=== PATIENT | male | born 1935 | race Caucasian/White ===

== ENCOUNTER 2018-12-03 21:02 | Emergency (ER) | payer OTHER ==
[2018-12-03] MEDS ORDERED: HYDROcodone/Acetaminophen 10/325 mg Tablet ONE (22:38)
[2018-12-03] MEDS ORDERED: Lidocaine 1% (PF) 30 ML VIAL ONE (22:55)
== END 2018-12-03 23:20 | disposition home or self-care (01) ==
LOC: ERS 21:02
DX: L02.11 Cutaneous abscess of neck (principal); E10.9 Type 1 diabetes mellitus without complications; I10 Essential (primary) hypertension; J44.9 Chronic obstructive pulmonary disease, unspecified; Z79.1 Long term (current) use of non-steroidal anti-inflammatories (NSAID); Z79.891 Long term (current) use of opiate analgesic; Z79.82 Long term (current) use of aspirin; Z79.51 Long term (current) use of inhaled steroids
CPT/HCPCS: 10060; 36416; J2001

== ENCOUNTER 2019-07-23 16:12 | Inpatient (IN) | payer OTHER ==
[2019-07-23 16:57] LABS: #Lymphocytes 1.2 thou/uL (1.20-3.40); #Monocytes 0.6 thou/uL (0.11-0.59); #Neutrophils 7.6 thou/uL (1.40-6.50); %Basophils 0.3 % (0.0-1.0); %Eosinophils 0.2 % (0.0-10.0); %Lymphocytes 12.3 % (21.0-51.0); %Monocytes 6.6 % (0.0-10.0); %Neutrophils 80.6 % (42.0-75.0); Hemoglobin 15.4 g/dL (14.0-18.0); Mean Corpuscular HGB CONC 33.2 g/dL (32.0-36.0); Mean Corpuscular Hemoglobin 28.6 pg (27.0-31.0); Mean Corpuscular Volume 86.1 fL (78.0-98.0); Mean Platelet Volume 9.5 fL (7.4-10.4); Platelet Count 211 thou/uL (130-400); RBC Distribution Width 12.2 % (11.5-14.5); White Blood Cell (WBC) Count 9.5 thou/uL (4.8-10.8)
--- NOTE | 2019-07-23 17:11 | RAD ---
RADIOGRAPH CHEST 1 VIEW: DATE: 07/23/2019 TIME: 4:15 PM HISTORY: 83-year-old female with dyspnea COMPARISON: none FINDINGS: Inspiration is shallow. Hazy, increased attenuation at the lateral, peripheral aspects of bilateral l osmar morgan, especially at left lateral mid and lower lung zones. No large consolidation or pneumothorax. Without prior studies, it is uncertain whether these changes are chronic or acute. IMPRESSION: Nonspecific mild, faint pulmonary densities at the peripheries of the bilateral lungs, especially lef t.
[2019-07-23 17:17] LABS: ALT (SGPT) 30 U/L (8-55); AST (SGOT) 48 U/L (5-34); Albumin 3.5 g/dL (3.4-4.8); Alkaline Phosphatase 147 U/L (40-110); Anion Gap 15 mmol/L (10-20); BUN (Urea Nitrogen) 12 mg/dL (8.4-25.7); Bilirubin, Total 0.4 mg/dL (0.2-1.2); Calc. Creatinine Clearance 0 mL/min (70-130); Calcium 8.3 mg/dL (7.8-10.44); Carbon Dioxide 23 mmol/L (23-31); Chloride 97 mmol/L (98-107); Estimated GFR-MDRD 72; Globulin 3.3 g/dL (2.4-3.5); Glucose 420 mg/dL (83-110); Potassium 3.8 mmol/L (3.5-5.1); Protein, Total 6.8 g/dL (5.8-8.1); Sodium 131 mmol/L (136-145)
[2019-07-23] MEDS ORDERED: cefTRIAXone\\ROCEPHIN 2 GM VIAL ONE (18:00)
[2019-07-23] MEDS ORDERED: Azithromycin 500 MG VIAL ONE (18:23)
[2019-07-23] MEDS ORDERED: Acetaminophen 325 MG TAB PO PRN (19:19)
[2019-07-23] MEDS ORDERED: HYDROcodone/Acetaminophen 5/325 mg Tablet PO PRN (19:19)
[2019-07-23] MEDS ORDERED: Ondansetron ODT 4 MG TAB PO PRN (19:19)
[2019-07-23] MEDS ORDERED: Acetaminophen 650 MG Suppository PR PRN (19:19)
[2019-07-23] MEDS ORDERED: Ondansetron PF 4 MG/2 ML Vial IVP PRN (19:19)
[2019-07-23] MEDS ORDERED: HYDROcodone/Acetaminophen 7.5/325 mg Tablet PO PRN (19:19)
--- NOTE | 2019-07-23 19:35 | PDOC.HHP ---
Hospitalist HPI - History of Present Illness sob History of Present Illness: Case of an 83y/o male with pmhx of dmt2, htn and copd who comes to hospital brought in from [facility] due to shortness of breath. patient refers he was on his usual state of health until 3 days ago when he started with increasing sob, cough and yellow/greenish production, patient denies fever chills, chest pain or leg swelling. possible exposure to coronavirus. patient is also complaining of nausea, no vomiting. also refers some 2 episodes of diarrhea yesterday. upon arrival patient found on sepis parameters with increased RR and elevated lactid acid for which hospitlast was consulted for further evaluation and management Hospitalist ROS - Review of Systems All other systems reviewed; all pertinent +/- noted in HPI/Subj Hospitalist History - Past Medical History Cardiac: reports: HTN Pulmonary: reports: COPD Endocrine: reports: Diabetes - Past Surgical History Past Surgical History: reports: no pertinent history Other Surgical History: circumcision - Family History Family History: reports: cardiac disorder - Exam General Appearance: awake alert Eye: PERRL, anicteric sclera ENT: normocephalic atraumatic, no oropharyngeal lesions Neck: supple, symmetric, no JVD, no thyromegaly Heart: RRR, no gallops, murmur present Respiratory: CTAB, no wheezes, no rales, no ronchi Respiratory - other findings: tachypnic Gastrointestinal: soft, non-tender, non-distended Extremities: no cyanosis, no clubbing Skin: normal turgor, no lesions Neurological: cranial nerve grossly intact, normal sensation to touch Musculoskeletal: normal tone, normal strength, no muscle wasting Psychiatric: normal affect, normal behavior, A&O x 3 Hospitalist Results - Labs Result Diagrams: 07/23/19 16:39 07/23/19 16:39 Lab results: WBC 9.5 thou/uL (4.8-10.8) 07/23/19 16:39 Hgb 15.4 g/dL (14.0-18.0) 07/23/19 16:39 Hct 46.5 % (42.0-52.0) 07/23/19 16:39 MCV 86.1 fL (78.0-98.0) 07/23/19 16:39 Plt Count 211 thou/uL (130-400) 07/23/19 16:39 Neutrophils % 80.6 % (42.0-75.0) H 07/23/19 16:39 Sodium 131 mmol/L (136-145) L 07/23/19 16:39 Potassium 3.8 mmol/L (3.5-5.1) 07/23/19 16:39 Chloride 97 mmol/L (98-107) L 07/23/19 16:39 Carbon Dioxide 23 mmol/L (23-31) 07/23/19 16:39 BUN 12 mg/dL (8.4-25.7) 07/23/19 16:39 Creatinine 0.99 mg/dL (0.7-1.3) 07/23/19 16:39 Glucose 420 mg/dL (83-110) H 07/23/19 16:39 Lactic Acid 2.3 mmol/L (0.5-2.2) H 07/23/19 16:39 Calcium 8.3 mg/dL (7.8-10.44) 07/23/19 16:39 Total Bilirubin 0.4 mg/dL (0.2-1.2) 07/23/19 16:39 AST 48 U/L (5-34) H 07/23/19 16:39 ALT 30 U/L (8-55) 07/23/19 16:39 Alkaline Phosphatase 147 U/L (40-110) H 07/23/19 16:39 Troponin I 0.013 ng/mL (< 0.028) 07/23/19 17:29 B-Natriuretic Peptide 39.7 pg/mL (0-100) 07/23/19 16:39 Serum Total Protein 6.8 g/dL (5.8-8.1) 07/23/19 16:39 Albumin 3.5 g/dL (3.4-4.8) 07/23/19 16:39 - Radiology Interpretation Chest x-ray Additional Comment: Inspiration is shallow. Hazy, increased attenuation at the lateral, peripheral aspects of bilateral l osmar morgan, especially at left lateral mid and lower lung zones. No large consolidation or pneumothorax. Without prior studies, it is uncertain whether these changes are chronic or acute. IMPRESSION: Nonspecific mild, faint pulmonary densities at the peripheries of the bilateral lungs, especially lef t. Hospitalist H&P A/P - Problem (1) Pneumonia Code(s): J18.9 - PNEUMONIA, UNSPECIFIED ORGANISM Status: Acute (2) COVID-19 ruled out Code(s): Z03.818 - ENCNTR FOR OBS FOR SUSP EXPSR TO [facility]ENTS RULED OUT Status: Acute (3) COPD (chronic obstructive pulmonary disease) Status: Acute (4) Diabetes Code(s): E11.9 - TYPE 2 DIABETES MELLITUS WITHOUT COMPLICATIONS Status: Acute (5) HTN (hypertension) Code(s): I10 - ESSENTIAL (PRIMARY) HYPERTENSION Status: Acute - Plan Plan: - admit to tele - rocephin + azithromycin - 02 supplementation -sepsis bundles f/u lactid acid - f/u blood cultures - dvt prophylaxis - continue home meds for chronic conditons -accu checks and ss
[2019-07-23 20:04] LABS: Lactic Acid 2.8 mmol/L (0.5-2.2)
[2019-07-23 20:19] LABS: Troponin I 0.017 ng/mL (< 0.028)
[2019-07-23] MEDS: Sodium Chloride 0.9% 1,000 ML IV SCH (21:28)
[2019-07-23] MEDS ORDERED: Dextrose 5% in Water 1,000 ML IV PRN (22:06)
[2019-07-23] MEDS ORDERED: Dextrose 50% Abboject 50 ML SYRINGE SLOW IVP PRN (22:06)
[2019-07-23] MEDS ORDERED: guaiFENesin 200 MG TAB PO PRN (22:08)
[2019-07-23 23:36] VITALS: BMI 31.4
[2019-07-23] MEDS ORDERED: HumaLOG 300 UNITS/3 ML VIAL SC PRN (23:54)
[2019-07-24 00:05] LABS: Troponin I 0.022 ng/mL (< 0.028)
[2019-07-24] MEDS: Guaifenesin DM 100-10/5 ML UDCUP PO PRN ×3 (03:19→20:41)
[2019-07-24 05:05] LABS: Hemoglobin A1c 9.6 % (4.0-6.0)
[2019-07-24 05:10] LABS: Band 7 % (5-11); Eosinophils 1 % (0-10); Hemoglobin 13.9 g/dL (14.0-18.0); Lymphocytes 10 % (21-51); MDiff Complete? YES; Mean Corpuscular HGB CONC 32.1 g/dL (32.0-36.0); Mean Corpuscular Hemoglobin 27.6 pg (27.0-31.0); Mean Corpuscular Volume 85.8 fL (78.0-98.0); Mean Platelet Volume 9.4 fL (7.4-10.4); Monocytes 7 % (0-10); Neutrophil 75 % (42-75); Platelet Count 202 thou/uL (130-400); Platelet Morphology Comment Appears Adequate; RBC Distribution Width 12.2 % (11.5-14.5); RBC Morphology Normal; Red Blood Cell (RBC) Count 5.06 mill/uL (4.70-6.10); White Blood Cell (WBC) Count 9.9 thou/uL (4.8-10.8)
[2019-07-24 05:22] LABS: ALT (SGPT) 24 U/L (8-55); AST (SGOT) 36 U/L (5-34); Albumin 3.2 g/dL (3.4-4.8); Alkaline Phosphatase 124 U/L (40-110); Anion Gap 13 mmol/L (10-20); BUN (Urea Nitrogen) 8 mg/dL (8.4-25.7); Bilirubin, Total 0.3 mg/dL (0.2-1.2); Calc. Creatinine Clearance 108 mL/min (70-130); Calcium 7.9 mg/dL (7.8-10.44); Carbon Dioxide 25 mmol/L (23-31); Chloride 100 mmol/L (98-107); Estimated GFR-MDRD Greater than 90; Globulin 2.9 g/dL (2.4-3.5); Glucose 225 mg/dL (83-110); Potassium 3.9 mmol/L (3.5-5.1); Protein, Total 6.1 g/dL (5.8-8.1); Sodium 134 mmol/L (136-145)
[2019-07-24] MEDS: HumaLOG 300 UNITS/3 ML VIAL SC PRN ×2 (06:10→17:31)
[2019-07-24] MEDS ORDERED: Enoxaparin Sodium 40 MG/0.4 ML SYRINGE SC SCH (09:00)
[2019-07-24] MEDS ORDERED: hydrALAZINE 20 MG/ML VIAL SLOW IVP PRN (11:12)
[2019-07-24] MEDS ORDERED: Non-Formulary Item 1 EACH (Albuterol Sulfate [Proair Hfa] 2 PUFF) INH PRN (11:13)
[2019-07-24] MEDS: Sodium Chloride 0.9% 1,000 ML IV SCH (11:17)
[2019-07-24] MEDS ORDERED: Albuterol 200 PUFF (6.7GM INHALER) INH PRN (11:22)
[2019-07-24 12:41] LABS: SARS-CoV-2 MS2 Positive; SARS-CoV-2 N Gene Positive; SARS-CoV-2 S Gene Positive; SARS-CoV-2 orf1ab Positive
[2019-07-24] MEDS ORDERED: Carvedilol 3.125 MG TAB PO SCH (17:00)
[2019-07-24] MEDS ORDERED: cefTRIAXone\\ROCEPHIN 1 GM in Sodium Chloride 0.9% 100 ML IVPB SCH (18:00)
[2019-07-24] MEDS ORDERED: Mometasone 200 MCG/PUFF (1 INHALER) INH SCH (18:30)
[2019-07-24] MEDS ORDERED: Azithromycin 500 MG in Sodium Chloride 0.9% 250 ML 250 ML IVPB SCH (18:30)
--- NOTE | 2019-07-24 20:27 | DIS ---
DATE OF ADMISSION: 07/23/2019 DATE OF DISCHARGE: 07/24/2019 DISCHARGE DISPOSITION: To [facility]. The patient was seen and examined on the day of discharge. Denies any new complaints PHYSICAL EXAMINATION: VITAL SIGNS: Show temperature 99.6 with O2 saturation of 88% on room air and 95% on 2 L, pulse rate of 97, respirations of 22, blood pressure of 146/65. GENERAL: An 83-year-old male, ill-appearing, in no respiratory distress at rest. LUNGS: Show few rhonchi at bilateral bases. No accessory muscle use. No wheezing or rales. HEART: S1 and S2 present. Regular rate and rhythm. ABDOMEN: Soft, nontender. Bowel sounds present. EXTREMITIES: No edema or calf tenderness. Telemetry monitoring showed sinus rhythm. DISCHARGE MEDICATIONS: 1. Metformin will be discontinued due to lactic acidosis. 2. The patient will continue ceftriaxone, azithromycin with Remdesivir. All other medications were left unchanged. BRIEF HOSPITAL COURSE: The patient is an 83-year-old male with diabetes mellitus type 2, hypertension, and COPD, presented to the hospital from the unit with shortness of breath of 3 to 4 days duration. There was no fever or chills reported. His workup was consistent with acute hypoxic respiratory failure secondary to pneumonia. COVID-19 testing came back positive. I discussed with Dr. Hunt, the Infectious Disease who recommended starting him Remdesivir. The patient understands the risk associated with Remdesivir, not limited to liver and kidney damage. He also understands that this is an experimental drug for COVID-19. Symptomatically, he feels somewhat better with O2 supplementation. He will probably be discharged to [facility] tonight or tomorrow morning. SIGNIFICANT LABORATORY DATA: WBC 6.5 with 12.3% neutrophils. Sodium 131, potassium 3.8, chloride 97, bicarb 23. Lactic acid of 2.8. Hemoglobin A1c 9.6. Troponin 0.02. COVID-19 was negative. Blood culture negative. Chest x-ray by my review showed questionable infiltrate at bases. IMPRESSION: 1. Sepsis with acute hypoxic respiratory failure secondary to COVID-19 pneumonia present on admission. 2. Diabetes mellitus type 2. 3. Hypertension. 4. Chronic obstructive pulmonary disease. 5. Obesity with a BMI of 31.4. 6. Lactic acidosis. 7. Hyponatremia. 8. Chronic kidney disease, stage 2. Time coordinating the discharge of this patient was 35 minutes. I discussed the case extensively with the [facility] physician. Job ID: [id number]
[2019-07-24] MEDS ORDERED: glipiZIDE 5 MG TAB PO SCH (21:00)
[2019-07-24] MEDS ORDERED: Amlodipine 5 MG TAB PO SCH (21:00)
[2019-07-24] MEDS ORDERED: metFORMIN 500 MG TAB PO SCH (21:00)
[2019-07-24] MEDS ORDERED: Insulin Glargine 10 UNITS in Pre-Filled Syringe 1 EACH SC SCH (21:00)
[2019-07-24 21:31] VITALS: BP 154/66; TEMP 99
[2019-07-25] MEDS ORDERED: Aspirin 81 mg Enteric Coated Tablet PO SCH (09:00)
== END 2019-07-24 23:01 | disposition short-term general hospital (02) | DRG 871 ==
LOC: ERS 16:12 → EEVIPCON 19:06 → 2SW 19:06
PROVIDERS: ADMIT Internal Medicine; ATTEND Internal Medicine
PROC: 8E0ZXY6 Isolation (ICD-10-PCS; principal; 2019-07-23)
DX: A41.89 Other specified sepsis (principal); U07.1 COVID-19; J96.01 Acute respiratory failure with hypoxia; J12.89 Other viral pneumonia; J44.0 Chronic obstructive pulmonary disease with (acute) lower respiratory infection; E87.2 Acidosis; E87.1 Hypo-osmolality and hyponatremia; N18.2 Chronic kidney disease, stage 2 (mild); E11.22 Type 2 diabetes mellitus with diabetic chronic kidney disease; I12.9 Hypertensive chronic kidney disease with stage 1 through stage 4 chronic kidney disease, or unspecified chronic kidney disease; Z87.891 Personal history of nicotine dependence; Z79.899 Other long term (current) drug therapy; Z79.84 Long term (current) use of oral hypoglycemic drugs; Z79.82 Long term (current) use of aspirin; Z79.51 Long term (current) use of inhaled steroids
CPT/HCPCS: 36415; 36416; 71045; 80053; 83036; 83605; 83880; 84484; 85007; 85025; 85027; 87040; 87635; 93005; 94760; 96365; 96366; 96367; J0456; J0696; J1650; J1815; J3490; J7050; U0003

== ENCOUNTER 2022-07-29 18:32 | Emergency (ER) | payer OTHER ==
[~2022-07-29 18:32] MED LIST: Iopamidol-370 76% 500 ML MDV (1 ML CHARGE) ONE
[2022-07-29 18:46] LABS: #Basophils 0.1 thou/uL (0.0-0.2); #Eosinphils 0.1 thou/uL (0.0-0.7); #Neutrophils 7.7 thou/uL (1.40-6.50); %Basophils 0.4 % (0.0-1.0); %Eosinophils 0.5 % (0.0-10.0); %Lymphocytes 29.7 % (21.0-51.0); %Monocytes 7.6 % (0.0-10.0); Hemoglobin 12.8 g/dL (14.0-18.0); Mean Corpuscular HGB CONC 31.7 g/dL (32.0-36.0); Mean Corpuscular Hemoglobin 28.5 pg (27.0-31.0); Mean Platelet Volume 11.4 fL (7.4-10.4); Platelet Count 294 10x3/uL (130-400); RBC Distribution Width 14.8 % (11.5-14.5); Red Blood Cell (RBC) Count 4.49 mill/uL (4.70-6.10); White Blood Cell (WBC) Count 12.7 10x3/uL (4.8-10.8)
[2022-07-29] MEDS ORDERED: Tenecteplase 50 MG ONE (18:54)
[2022-07-29 19:20] LABS: ALT (SGPT) 25 U/L (8-55); AST (SGOT) 49 U/L (5-34); Albumin 3.6 g/dL (3.4-4.8); Alkaline Phosphatase 206 U/L (40-110); Anion Gap 16 mmol/L (10-20); BUN (Urea Nitrogen) 16 mg/dL (8.4-25.7); Bilirubin, Total 0.4 mg/dL (0.2-1.2); CK (CPK) 43 U/L (30-200); Calc. Creatinine Clearance 0 mL/min (70-130); Calcium 9.4 mg/dL (7.8-10.44); Carbon Dioxide 22 mmol/L (23-31); Chloride 105 mmol/L (98-107); Estimated GFR 85; Globulin 4.4 g/dL (2.4-3.5); Glucose 152 mg/dL (83-110); Potassium 4.2 mmol/L (3.5-5.1); Sodium 139 mmol/L (136-145)
[2022-07-29 19:21] LABS: Acetaminophen Less than 10 mcg/mL (10.0-30.0); Alcohol Less than 10.0 mg/dL (Less than 10); Lipase 298 U/L (8-78); Salicylate Less than 8.0 mg/dL (15.0-30.0)
[2022-07-29 19:25] LABS: INR-International Normal Ratio 1.1; Prothrombin Time 14.6 sec (12.0-14.7)
== END 2022-07-30 01:30 | disposition short-term general hospital (02) ==
LOC: ERS 18:32
DX: R53.1 Weakness (principal); D72.829 Elevated white blood cell count, unspecified; E11.9 Type 2 diabetes mellitus without complications; I10 Essential (primary) hypertension; J44.9 Chronic obstructive pulmonary disease, unspecified; Z87.891 Personal history of nicotine dependence; Z79.82 Long term (current) use of aspirin; Z79.899 Other long term (current) drug therapy; Z79.4 Long term (current) use of insulin; Z79.84 Long term (current) use of oral hypoglycemic drugs
CPT/HCPCS: 70450; 70496; 70498; 71045; 80053; 80307; 82550; 83605; 83690; 84484; 85025; 85610; 85730; 86140; 93005; 94760; 96374; J3101; Q9967